=== PATIENT | female | born 1985 | race African-American/Black ===

== ENCOUNTER 2018-06-09 16:42 | Inpatient (IN) | payer OTHER ==
[~2018-06-09] VITALS: Ht 165.1 cm; Wt 61.4 kg
[~2018-06-09 16:42] MED LIST: ENDOCET 5-3251 EACH PO; IBUPROFEN800 MG PO; PRENATAL TABLE1 EAC3 PO
[2018-06-09 17:31] VITALS: BP 119/78
[2018-06-09 18:54] VITALS: BP 109/74
[2018-06-09 18:57] LABS: BASOPHIL (%) 0.5 % (0-1); EOSINOPHIL (%) 0.5 % (0-5); HEMATOCRIT 33.9 % (36.0-46.0); HEMOGLOBIN 11.5 G/DL (11.9-15.5); IMMATURE GRANULOCYTE (%) 0.5 % (0.0-0.7); LYMPHOCYTE (%) 17.2 % (15-42); LYMPHOCYTE COUNT 1.5 K/uL (1.0-2.8); MCH 31.1 PG (29.0-34.0); MCHC 33.9 G/DL (30.0-36.0); MCV 91.6 FL (83-99); MONOCYTE (%) 7.3 % (3-12); MONOCYTE COUNT 0.6 K/uL (0-0.8); NEUTROPHIL COUNT 6.3 K/uL (1.8-6.4); PLATELET COUNT 181 K/uL (156-360); RBC DIS.WIDTH-CV 12.7 % (11.8-14.6); RBC DIS.WIDTH-SD 42.4 % (39-53); WHITE BLOOD COUNT 8.5 K/uL (4.1-10.2)
[2018-06-09 20:29] LABS: AMPHETAMINE NEGATIVE (500 ng/mL); BARBITURATES NEGATIVE (200 ng/mL); BENZODIAZEPINES NEGATIVE (150 ng/mL); BUPRENORPHINE NEGATIVE (10 ng/mL); COCAINE NEGATIVE (150 ng/mL); METHADONE NEGATIVE (200 ng/mL); METHAMPHETAMINE NEGATIVE (500 ng/mL); OPIATES (MORPHINE) NEGATIVE (100 ng/mL); OXYCODONE NEGATIVE (100 ng/mL); PHENCYCLIDINE NEGATIVE (25 ng/mL); PROPOXYPHENE NEGATIVE (300 ng/mL); THC CANNABINOIDS NEGATIVE (50 ng/mL); TRICYCLIC ANTIDEPRESSANTS NEGATIVE (300 ng/mL)
[2018-06-09 20:59] VITALS: BP 114/72
[2018-06-09 22:50] VITALS: BP 114/73
[2018-06-09 23:21] VITALS: BP 99/53
[2018-06-10] VITALS (31 sets, daily range): BP systolic 103–191; BP diastolic 58–126
[2018-06-10] MEDS ORDERED: IBUPROFEN800 MG PO (17:01)
[2018-06-11 06:55] VITALS: BP 101/60
[2018-06-11 14:20] VITALS: BP 109/63
== END 2018-06-11 17:27 | disposition home or self-care (01) | DRG 775 ==
LOC: LDRP-OP 16:42 → 2WEST 16:43 → LDRP-OP 07-30 06:11
PROVIDERS: Midwife
DX: O36.5930 Maternal care for other known or suspected poor fetal growth, third trimester, not applicable or unspecified (principal); Z3A.37 37 weeks gestation of pregnancy; Z37.0 Single live birth
CPT/HCPCS: 85025; C1755; G0378; J0595; J7120